=== PATIENT | female | born 1965 | race Caucasian/White ===

== ENCOUNTER 2017-01-25 05:24 | Emergency (ER) | payer MEDICAID ==
[~2017-01-25] VITALS: Ht 157.5 cm; Wt 74.2 kg
[2017-01-25] MEDS ORDERED: SODIUM CHLORIDE 0.9% 1,000 ML IV ONE (06:10)
[2017-01-25] MEDS ORDERED: LORAZEPAM 1MG TABLET PO ONE (06:15)
[2017-01-25 06:36] LABS: BASOPHILS % 0.3 % (0.0-2.0); EOSINOPHILS % 0.3 % (0.0-5.0); HEMATOCRIT. 35.8 % (36.0-48.0); HEMOGLOBIN. 11.8 g/dL (12.0-16.0); LYMPHOCYTES % 7.8 % (20.0-50.0); MEAN CORPUSCULAR HEMOGLOBIN 28.4 pg (28.0-32.0); MEAN CORPUSCULAR HGB CONC 32.9 g/dL (31.0-37.0); MEAN CORPUSCULAR VOLUME 86.2 fL (81.0-99.0); MEAN PLATELET VOLUME 8.4 fl (7.4-10.4); MONOCYTES % 9.7 % (2.0-8.0); NEUTROPHILS % 81.9 % (40.0-76.0); PLATELET 223 x1000/uL (130-400); RED BLOOD CELL COUNT 4.15 mill/uL (4.2-5.4); RED CELL DISTRIBUTION WIDTH 15.7 % (11.6-14.6); WHITE BLOOD COUNT 13.8 x1000/uL (4.5-11.0)
[2017-01-25 06:41] LABS: PARTIAL THROMBOPLASTIN TIME 27.1 sec (24.0-34.0); PROTHROMBIN TIME 10.3 sec
[2017-01-25 06:49] LABS: ALANINE AMINOTRANSFERASE 19 IU/L (13-61); ALBUMIN 3.8 g/dL (3.4-5.0); ANION GAP 17; CALCIUM 8.7 mg/dL (8.5-10.1); CARBON DIOXIDE 23 mEq/L (21-32); CHLORIDE 102 mEq/L (98-107); INDEX HEMOLYSI 1 (1-3); INDEX ICTERIC 1 (1-4); INDEX LIPEMIC 1 (1-3); LIPASE 134 IU/L (73-393); NT PRO B-TYPE NATRIURETIC PEP 32 pg/mL (5-125); TROPONIN I < 0.02 ng/mL (0.00-0.04); UREA NITROGEN BLOOD 10 mg/dL (7-21); eGFR > 60 mL/min (>60)
[2017-01-25 07:35] VITALS: BP 125/73
== END 2017-01-25 08:16 | disposition home or self-care (01) ==
LOC: ER 05:24
DX: T48.6X1A Poisoning by antiasthmatics, accidental (unintentional), initial encounter (principal); T48.6X5A Adverse effect of antiasthmatics, initial encounter; J44.9 Chronic obstructive pulmonary disease, unspecified; R00.2 Palpitations; J45.909 Unspecified asthma, uncomplicated; R00.0 Tachycardia, unspecified; E87.6 Hypokalemia; R73.9 Hyperglycemia, unspecified; Y92.89 Other specified places as the place of occurrence of the external cause
CPT/HCPCS: 36415; 71010; 80053; 83690; 83880; 84443; 84484; 85025; 85610; 85730; 93005; 96360; 99285; J7030

== ENCOUNTER 2019-03-04 20:09 | Emergency (ER) | payer MEDICAID ==
[~2019-03-04] VITALS: Ht 162.6 cm; Wt 74.0 kg
[2019-03-04] MEDS ORDERED: IBUPROFEN 600MG TABLET PO ONE (21:00)
[2019-03-04] MEDS ORDERED: DIPHENHYDRAMINE 50MG/ML VIAL IV ONE (21:00)
[2019-03-04 21:24] LABS: BASOPHILS % 0.3 % (0.0-2.0); HEMATOCRIT. 36.8 % (36.0-48.0); HEMOGLOBIN. 12.7 g/dL (12.0-16.0); LYMPHOCYTES % 31.9 % (20.0-50.0); MEAN CORPUSCULAR VOLUME 89.8 fL (81.0-99.0); MEAN PLATELET VOLUME 8.4 fl (7.4-10.4); MONOCYTES % 9.1 % (2.0-8.0); NEUTROPHILS % 56.7 % (40.0-76.0); PLATELET 321 x1000/uL (130-400); RED BLOOD CELL COUNT 4.09 mill/uL (4.2-5.4); RED CELL DISTRIBUTION WIDTH 13.2 % (11.6-14.6)
[2019-03-04 21:26] LABS: CLARITY URINE CLEAR (CLEAR); COLOR URINE YELLOW (YELLOW); KETONES URINE NEGATIVE (NEGATIVE); LEUKOCYTE ESTERASE URINE TRACE (NEGATIVE); NITRITE URINE NEGATIVE (NEGATIVE); OCCULT BLOOD URINE 2+ (NEGATIVE); PROTEIN URINE NEGATIVE (NEGATIVE); SPECIFIC GRAVITY URINE 1.006 (1.005-1.030); UROBILINOGEN URINE 0.2 E.U./dL (0.2-1.0)
[2019-03-04 21:28] LABS: CHLORIDE 104 mEq/L (98-107)
[2019-03-04 22:04] LABS: INR 0.9; PARTIAL THROMBOPLASTIN TIME 30.1 sec (23.4-31.0); PROTHROMBIN TIME 9.6 sec (9.6-11.0)
[2019-03-04 22:28] VITALS: BP 163/82
== END 2019-03-04 22:35 | disposition home or self-care (01) ==
LOC: ER 20:09
DX: D69.2 Other nonthrombocytopenic purpura (principal); R21 Rash and other nonspecific skin eruption; E11.9 Type 2 diabetes mellitus without complications
CPT/HCPCS: 36415; 80053; 81003; 82962; 85025; 85610; 85730; 96374; 99283; J1200

== ENCOUNTER 2019-03-19 13:02 | Emergency (ER) | payer MEDICAID ==
[~2019-03-19] VITALS: Ht 157.5 cm; Wt 82.0 kg
[2019-03-19 16:39] LABS: BASOPHILS % 0.2 % (0.0-2.0); EOSINOPHILS % 0.1 % (0.0-5.0); HEMATOCRIT. 37.5 % (36.0-48.0); HEMOGLOBIN. 12.7 g/dL (12.0-16.0); LYMPHOCYTES % 20.7 % (20.0-50.0); MEAN CORPUSCULAR HEMOGLOBIN 30.3 pg (28.0-32.0); MEAN CORPUSCULAR VOLUME 89.6 fL (81.0-99.0); MEAN PLATELET VOLUME 8.2 fl (7.4-10.4); MONOCYTES % 5.4 % (2.0-8.0); NEUTROPHILS % 73.6 % (40.0-76.0); PLATELET 391 x1000/uL (130-400); RED BLOOD CELL COUNT 4.18 mill/uL (4.2-5.4); RED CELL DISTRIBUTION WIDTH 13.7 % (11.6-14.6)
[2019-03-19 16:42] LABS: CHLORIDE 107 mEq/L (98-107)
[2019-03-19 16:46] LABS: PARTIAL THROMBOPLASTIN TIME 25.7 sec (23.4-31.0); PROTHROMBIN TIME 9.9 sec (9.6-11.0)
[2019-03-19 20:36] VITALS: BP 155/68
[2019-03-23] MEDS ORDERED: METF-415 MT (05:21)
[2019-03-23] MEDS ORDERED: METF-414 MT (05:21)
== END 2019-03-19 21:34 | disposition short-term general hospital (02) ==
LOC: ER 13:02 → CANBEDREQ 21:49
DX: I77.6 Arteritis, unspecified (principal); E11.9 Type 2 diabetes mellitus without complications; M06.9 Rheumatoid arthritis, unspecified; M25.569 Pain in unspecified knee; M25.579 Pain in unspecified ankle and joints of unspecified foot; R07.9 Chest pain, unspecified; F17.200 Nicotine dependence, unspecified, uncomplicated
CPT/HCPCS: 36415; 71045; 80053; 82962; 85025; 85610; 85730; 86850; 86900; 86901; 93005; 99285; Z7610

== ENCOUNTER 2019-08-22 22:41 | Emergency (ER) | payer MEDICAID ==
[~2019-08-22] VITALS: Ht 157.5 cm; Wt 71.0 kg
[~2019-08-22 22:41] MED LIST: METF-414 MT; METF-415 MT
[2019-08-23 01:19] VITALS: BP 118/69
== END 2019-08-23 01:20 | disposition home or self-care (01) ==
LOC: ER 22:41
DX: S09.90XA Unspecified injury of head, initial encounter (principal); E11.9 Type 2 diabetes mellitus without complications; E78.00 Pure hypercholesterolemia, unspecified; Z88.0 Allergy status to penicillin; Z79.899 Other long term (current) drug therapy; X58.XXXA Exposure to other specified factors, initial encounter; Y93.89 Activity, other specified; Y92.89 Other specified places as the place of occurrence of the external cause; Y99.8 Other external cause status
CPT/HCPCS: 99284

== ENCOUNTER 2019-12-26 06:33 | Emergency (ER) | payer MEDICAID ==
[~2019-12-26] VITALS: Ht 157.5 cm; Wt 72.0 kg
[2019-12-26 07:35] VITALS: BP 131/87
[2019-12-26] MEDS ORDERED: SODIUM CHLORIDE 0.9% 1,000 ML IV ONE (07:35)
[2019-12-26] MEDS ORDERED: KETOROLAC 30MG/ML VIAL IV STA (07:35)
[2019-12-26] MEDS ORDERED: METOCLOPRAMIDE HCL 10MG/2ML VIAL IV ONE (07:45)
[2019-12-26 08:12] LABS: BASOPHILS % 0.3 % (0.0-2.0); EOSINOPHILS % 0.3 % (0.0-5.0); HEMATOCRIT. 38.4 % (36.0-48.0); LYMPHOCYTES % 9.6 % (20.0-50.0); MEAN CORPUSCULAR HEMOGLOBIN 30.9 pg (28.0-32.0); MEAN CORPUSCULAR VOLUME 90.8 fL (81.0-99.0); MEAN PLATELET VOLUME 7.7 fl (7.4-10.4); MONOCYTES % 4.6 % (2.0-8.0); NEUTROPHILS % 85.2 % (40.0-76.0); PLATELET 247 x1000/uL (130-400); RED BLOOD CELL COUNT 4.23 mill/uL (4.2-5.4); RED CELL DISTRIBUTION WIDTH 13.7 % (11.6-14.6)
[2019-12-26 08:21] LABS: CHLORIDE 106 mEq/L (98-107)
== END 2019-12-26 10:50 | disposition home or self-care (01) ==
LOC: ER 06:33
DX: B34.9 Viral infection, unspecified (principal); R51 Headache; E11.9 Type 2 diabetes mellitus without complications; Z88.0 Allergy status to penicillin; Z86.718 Personal history of other venous thrombosis and embolism
CPT/HCPCS: 36415; 80053; 85025; 96374; 96375; 99284; J1885; J2765; J7030

== ENCOUNTER 2022-03-13 23:57 | Emergency (ER) | payer MEDICAID ==
[~2022-03-13] VITALS: Ht 152.4 cm; Wt 73.8 kg
[2022-03-14 00:07] VITALS: BP 124/76
[2022-03-14] MEDS ORDERED: T3 PO (01:10)
[2022-03-14] MEDS ORDERED: IBUP-2028 PO (01:10)
[2022-03-14] MEDS ORDERED: DEXAMETHASONE 4MG/ML 1ML VIAL IM ONE (01:15)
[2022-03-14] MEDS ORDERED: KETOROLAC 60MG/2ML VIAL IM ONE (01:15)
== END 2022-03-14 01:09 | disposition home or self-care (01) ==
LOC: ER 03-14 00:20
DX: M54.9 Dorsalgia, unspecified (principal); E11.9 Type 2 diabetes mellitus without complications; M19.90 Unspecified osteoarthritis, unspecified site; Z88.0 Allergy status to penicillin
CPT/HCPCS: 99281; J1100; J1885

== ENCOUNTER 2022-09-24 19:55 | Emergency (ER) | payer MEDICAID ==
[~2022-09-24 19:55] MED LIST changes: +IBUP-2028 PO; +T3 PO
== END 2022-09-24 22:42 | disposition left against medical advice (07) ==
LOC: ER 19:55
DX: Z53.21 Procedure and treatment not carried out due to patient leaving prior to being seen by health care provider (principal)